=== PATIENT | female | born 1995 | race Caucasian/White ===

== ENCOUNTER 2023-06-01 17:25 | Outpatient (CLI) | payer BC, SELFPAY | END 2023-06-01 17:26 | disposition home or self-care (01) | LOC: LKVREF 17:26 | PROVIDERS: Visit Provider Nurse Practitioner Family | DX: R42 Dizziness and giddiness (principal) | CPT/HCPCS: 84443 ==

== ENCOUNTER 2024-10-28 11:44 | Outpatient (CLI) | payer BC, SELFPAY ==
[2024-10-28 14:10] LABS: Bacterial Vaginosis* Negative (Negative); Candida glab/krus NOT DETECTED (No Detected)
[2024-10-28 14:42] LABS: Chlamydia DNA Amplified* NOT DETECTED (No Detected); GC DNA Amplified* NOT DETECTED (No Detected)
[2024-10-29 19:58] LABS: HPV Source Cervix
[2024-11-01 11:55] LABS: Pap Test Digital Imaging Done
== END 2024-10-28 11:45 | disposition home or self-care (01) ==
PROVIDERS: Visit Provider Registered Nurse
DX: N89.8 Other specified noninflammatory disorders of vagina (principal); R39.9 Unspecified symptoms and signs involving the genitourinary system; Z12.4 Encounter for screening for malignant neoplasm of cervix; Z11.3 Encounter for screening for infections with a predominantly sexual mode of transmission; Z11.51 Encounter for screening for human papillomavirus (HPV); Z11.59 Encounter for screening for other viral diseases; Z11.4 Encounter for screening for human immunodeficiency virus [HIV]
CPT/HCPCS: 81513; 86592; 86703; 86803; 87086; 87340; 87481; 87491; 87591; 87624; 87625; 87661; 88141; 88142; 88175